=== PATIENT | female | born 1975 | race Two or more races ===

== ENCOUNTER → 2019-09-28 | Emergency (ER) | payer MEDICAID ==
[2019-09-28 23:28] VITALS: BP 134/89
--- NOTE | 2019-09-29 00:51 | ER Document Report ---
ED General - General Chief Complaint: Edema, decreased mo Stated Complaint: LEG SWELLING Time Seen by Provider: 09/29/19 00:16 Notes: 43-year-old female history 1 P0 32 weeks gestation presents emergency department complaining of markedly increased swelling in her feet and legs to the level of her knees starting yesterday associated with foot pain. She states she tried taking a cold bath and got so cold that she then had to take a warm bath but did not relieve any of her pain or swelling. Patient also states that since 3:00 this afternoon she has not felt any movement which is quite concerning to her. She is tried eating and drinking something but it has not caused any movement. Denies any abdominal pain or cramping, denies any vaginal discharge or dysuria. Previously she is only had some mild swelling in her feet that always resolved by morning. - Related Data Allergies/Adverse Reactions: No Known Allergies Allergy (Unverified 09/28/19 23:28) Home Medications: vitamin Past Medical History - General Information source: Patient - Social History Smoking Status: Never Smoker Frequency of alcohol use: None Drug Abuse: None Family History: Reviewed & Not Pertinent Patient has suicidal ideation: No Patient has homicidal ideation: No Review of Systems - Review of Systems Constitutional: No symptoms reported EENT: No symptoms reported Cardiovascular: See HPI, Edema Gastrointestinal: No symptoms reported Female Genitourinary: See HPI, Musculoskeletal: See HPI, Leg swelling, Ankle swelling -: Yes All other systems reviewed and negative Physical Exam - Vital signs Vitals: Temp Pulse Resp BP Pulse Ox 98.5 F 109 H 16 134/89 H 99 09/28/19 23:24 09/28/19 23:24 09/28/19 23:24 09/28/19 23:24 09/28/19 23:24 Interpretation: Hypertensive - Mildly hypertensive, Tachycardic - Notes Notes: GENERAL: Alert, interacts well. No acute distress. HEAD: Normocephalic, atraumatic EYES: Pupils equal, round and reactive to light, extraocular movements intact. ENT: Oral mucosa moist, tongue midline. NECK: Full range of motion, supple, trachea midline. LUNGS: Clear to auscultation bilaterally, no wheezes, rales or rhonchi, no res piratory distress. HEART: Regular rate and rhythm, no murmurs, gallops, rubs. ABDOMEN: gravid, mild RLQ TTP, bowel sounds present in all 4 quadrants. Unable to palpate movement. Bedside US does show heartbeat and spontaneous movement. EXTREMITIES: Moves all 4 extremities spontaneously, 2+ edeman, radial and dorsalis pedis pulses 2/4 bilaterally. No cyanosis. NEUROLOGICAL: Alert and oriented x3, normal speech, biceps and patellar DTRs 2+ bilaterally, no hyperactivity. PSYCH: Normal mood, normal affect. SKIN: Warm, Dry, normal turgor, no rashes or lesions noted. Course - Re-evaluation Re-evalutation: 09/29/19 00:56 Bedside ultrasound does show heartbeat and movement, I had difficulty measuring heartbeat with the ultrasound, we will attempt to get heart tones. Discussed patient with labor and delivery staff, they agree that a patient who is 32 weeks gestation and complaining of decreased movement and increased leg swelling without any respiratory symptoms should be seen on labor and delivery. They agree to accept the patient to labor and delivery triage as a labor check. Patient does not have any severe features of preeclampsia at this time. - Vital Signs Vital signs: Temp Pulse Resp BP Pulse Ox 98.5 F 109 H 16 134/89 H 99 09/28/19 23:24 09/28/19 23:24 09/28/19 23:24 09/28/19 23:24 09/28/19 23:24 Discharge - Discharge Clinical Impression: Third trimester at less than 36 weeks, Lower extremity edema Decreased movement Qualifiers: Fetus number: single or unspecified fetus Trimester: third trimester Qualified Code(s): O36.8130 - Decreased movements, third trimester, not applicable or unspecified Condition: Stable Disposition: LABOR CHECK Unit Admitted: Labor Check
== END | disposition admitted as inpatient to this hospital (09) ==
LOC: ER 23:16
DX: O12.03 Gestational edema, third trimester (principal); O36.8130 Decreased fetal movements, third trimester, not applicable or unspecified; Z3A.36 36 weeks gestation of pregnancy

== ENCOUNTER 2019-09-29 00:58 | Outpatient (CLI) | payer MEDICAID ==
[2019-09-29 01:42] LABS: APPEARANCE,URINE CLEAR; BILIRUBIN,URINE NEGATIVE (NEGATIVE); COLOR,URINE YELLOW; GLUCOSE, URINE NEGATIVE (NEGATIVE); KETONES,URINE NEGATIVE (NEGATIVE); LEUKOCYTE ESTERASE,URINE NEGATIVE (NEGATIVE); NITRITE,URINE NEGATIVE (NEGATIVE); PROTEIN,URINE NEGATIVE (NEGATIVE); UROBILINOGEN,URINE NEGATIVE mg/dL (<2.0)
[2019-09-29 01:49] LABS: URINE AMPHETAMINES SCREEN NEGATIVE; URINE BARBITURATES SCREEN NEGATIVE; URINE BENZODIAZEPINES SCREEN NEGATIVE; URINE COCAINE SCREEN NEGATIVE; URINE MARIJUANA (THC) SCREEN NEGATIVE; URINE METHADONE SCREEN NEGATIVE; URINE PHENCYCLIDINE SCREEN NEGATIVE
--- NOTE | 2019-09-29 02:23 | Non Stress Test Report ---
Non Stress Test Datetime Report Generated by CPN: 09/29/2019 02:23 DEMOGRAPHIC EGA NST: 32.5 INDICATION Indication for Study (NST) Other: LC, gestational age of 32 weeks or greater VITAL SIGNS Temperature - NST: 98.6 Pulse - NST: 80 RESP - NST: 16 NBPSYS NST: 110 NBPDIA NST: 68 MONITORING Monitor Explained: Monitor Explained; Test Explained; Patient Verbalized Understanding Time on Monitor: 09/29/2019 01:22 Time off Monitor: 09/29/2019 02:04 NST Duration: 42 NST INTERVENTIONS NST Interventions: PO Hydration Physician Notified NST: Dr. Powers BABY A: [id number] BABY A Movement : Present Contraction Frequency : none FHR Baseline : 140 Accelerations : 15X15 Decelerations : None Variability : Moderate 6-25bpm NST Review: Meets Criteria for Reactive NST NST Review and Verified By : Rufus Slater RN NST Results: Reactive NST REPORT Report Trigger: Send Report
== END 2019-09-29 02:16 | disposition home or self-care (01) ==
LOC: LC 00:58
PROVIDERS: ATTEND Obstetrics & Gynecology
PROC: 4A1HXCZ Monitoring of Products of Conception, Cardiac Rate, External Approach (ICD-10-PCS; principal; 2019-09-29)
DX: O36.8130 Decreased fetal movements, third trimester, not applicable or unspecified (principal); Z3A.32 32 weeks gestation of pregnancy
CPT/HCPCS: 59025; 80307; 81001

== ENCOUNTER 2019-11-01 04:53 | Inpatient (IN) | payer MEDICAID ==
[2019-10-31 11:56] LABS: ABSOLUTE EOSINOPHILS # (AUTO) 0.1 10^3/uL (0.0-0.6); ABSOLUTE LYMPHOCYTES (AUTO) 1.2 10^3/uL (0.5-4.7); ABSOLUTE MONOCYTES (AUTO) 0.5 10^3/uL (0.1-1.4); ABSOLUTE NEUT (AUTO) 7.4 10^3/uL (1.7-8.2); BASOPHILS % (AUTO) 0.3 % (0-2); EOSINOPHILS % (AUTO) 1.3 % (0-6); HEMATOCRIT 40.8 % (36.0-47.0); HEMOGLOBIN 14.3 g/dL (12.0-15.5); LYMPHOCYTES % (AUTO) 13.2 % (13-45); MEAN CORPUSCULAR HEMOGLOBIN 32.1 pg (27.0-33.4); MEAN CORPUSCULAR HGB CONC 35.2 g/dL (32.0-36.0); MEAN CORPUSCULAR VOLUME 91 fl (80-97); MONOCYTES % (AUTO) 5.8 % (3-13); PLATELET COUNT 171 10^3/uL (150-450); RED BLOOD COUNT 4.47 10^6/uL (3.72-5.28); RED CELL DISTRIBUTION WIDTH 13.9 % (11.5-14.0); SEGMENTED NEUTROPHILS % (AUTO) 79.4 % (42-78); TOTAL CELLS COUNTED % (AUTO) 100 %; WHITE BLOOD COUNT 9.4 10^3/uL (4.0-10.5)
[2019-10-31 12:04] LABS: APPEARANCE,URINE CLEAR; BILIRUBIN,URINE NEGATIVE (NEGATIVE); COLOR,URINE STRAW; GLUCOSE, URINE NEGATIVE (NEGATIVE); KETONES,URINE NEGATIVE (NEGATIVE); LEUKOCYTE ESTERASE,URINE NEGATIVE (NEGATIVE); NITRITE,URINE NEGATIVE (NEGATIVE); PROTEIN,URINE NEGATIVE (NEGATIVE); URINE SPECIFIC GRAVITY 1.003; UROBILINOGEN,URINE NEGATIVE mg/dL (<2.0)
[2019-10-31 12:22] LABS: URINE AMPHETAMINES SCREEN NEGATIVE; URINE BARBITURATES SCREEN NEGATIVE; URINE BENZODIAZEPINES SCREEN NEGATIVE; URINE COCAINE SCREEN NEGATIVE; URINE MARIJUANA (THC) SCREEN NEGATIVE; URINE METHADONE SCREEN NEGATIVE; URINE PHENCYCLIDINE SCREEN NEGATIVE
[2019-11-01] MEDS ORDERED: CEFAZOLIN SODIUM 2 GM in DEXTROSE 5%-WATER 100 ML IV PRN (05:00)
[2019-11-01] MEDS ORDERED: LIDOCAINE 0.5% INJ-PF (5 MG/ML) 50 ML SDV SUBCUT PRN (05:00)
[2019-11-01] MEDS ORDERED: LACTATED RINGERS 1000 ML IV PRN (05:00)
[2019-11-01] MEDS ORDERED: RINGERS SOLUTION,LACTATED 1,000 ML IV PRN ×2 (05:00→09:09)
[2019-11-01] MEDS ORDERED: ONDANSETRON HCL INJ/PF 4 MG/2 ML SDV ONE (07:22)
[2019-11-01] MEDS ORDERED: OXYTOCIN 10 UNIT/ML VIAL ONE (07:22)
[2019-11-01] MEDS ORDERED: OXYTOCIN/NORMAL SALINE 20 UNIT/1,000 ML RTUINJ ONE (07:22)
[2019-11-01] MEDS ORDERED: PHENYLEPHRINE HCL INJ/PF 10 MG/1 ML SDV ONE (07:22)
[2019-11-01] MEDS ORDERED: FENTANYL CITRATE INJ/PF 100 MCG/2 ML AMPUL ONE (07:22)
[2019-11-01] MEDS ORDERED: KETOROLAC TROMETHAMINE INJ/PF 30 MG/1 ML SDV ONE ×2 (07:22→08:41)
[2019-11-01] MEDS ORDERED: ACETAMINOPHEN 1,000 MG/100 ML RTUPB IV ONE (07:22)
[2019-11-01] MEDS ORDERED: CITRIC ACID/SODIUM CITRATE ORAL SOLN 15 ML UDCUP ONE (07:40)
[2019-11-01] MEDS ORDERED: TRIAMCINOLONE ACETONIDE INJ 40 MG/1 ML VIAL INJ PRN (08:13)
[2019-11-01] MEDS ORDERED: PROMETHAZINE HCL INJ 25 MG/1 ML VIAL IV PRN ×2 (08:21→09:09)
[2019-11-01] MEDS ORDERED: MEPERIDINE HCL/PF INJ 25 MG/1 ML DISP.SYRIN IV PRN (08:21)
[2019-11-01] MEDS ORDERED: MORPHINE SULFATE 10 MG/ML INJ IV PRN ×2 (08:21→09:09)
[2019-11-01] MEDS ORDERED: DIPHENHYDRAMINE HCL 50 MG/ML VIAL IV PRN (08:21)
[2019-11-01] MEDS ORDERED: FENTANYL CITRATE INJ/PF 100 MCG/2 ML AMPUL IV PRN ×3 (08:21)
[2019-11-01] MEDS ORDERED: OXYTOCIN/NORMAL SALINE 20 UNIT/1,000 ML RTUINJ IV PRN (09:09)
[2019-11-01] MEDS ORDERED: ACETAMINOPHEN 1,000 MG/100 ML RTUPB IV PRN (09:09)
[2019-11-01] MEDS ORDERED: DIPH/PERTUSS(ACELL)/TETANUS VAC/PF 0.5 ML SYR (>=10YO) IM PRN (09:09)
[2019-11-01] MEDS ORDERED: OXYCODONE-ACETAMINOPHEN 5-325 MG TABLET PO PRN ×2 (09:09)
[2019-11-01] MEDS ORDERED: MEASLES,MUMPS&RUBELLA VACC/PF 0.5 ML VIAL SUBCUT PRN (09:09)
[2019-11-01] MEDS ORDERED: ACETAMINOPHEN 325 MG TABLET PO PRN (09:09)
[2019-11-01] MEDS ORDERED: SIMETHICONE 80 MG TAB.CHEW PO PRN (09:09)
--- NOTE | 2019-11-01 10:22 | Operative Report ---
Operative Report DATE OF SURGERY: 11/01/19 Operative Report: Primary low transverse hysterotomy section with keloid scar revision PREOPERATIVE DIAGNOSIS: IUP at 37 weeks and 3 days, previous full-thickness myomectomy, keloid scar POSTOPERATIVE DIAGNOSIS: Same OPERATION: Primary low transverse hysterotomy section with keloid scar revision SURGEON: SALLY LAWS 1ST INDUSTRIAL SPRAYPAINTER: ROSELYN CHU 2ND Model Builder: MICHAEL LYONS ANESTHESIA: Spinal COMPLICATIONS: None ESTIMATED BLOOD LOSS: 700 INTRAOPERATIVE FINDINGS: Large keloid scar from patient's previous laparotomy, male infant cephalic presentation with Apgars of 8 and 9 PROCEDURE: PROCEDURE IN DETAIL: The patient was taken to the operating room, prepared and draped in a normal sterile fashion in a supine position with a leftward tilt. A transverse skin incision was made with a scalpel outlining the keloid scar. Once the scoring was completed car was undermined using the same scalpel till it was able able to be removed freely from the patient's abdomen. The incision was then carried through to the underlying layer of fascia with the same scalpel. The fascia was excised in the midline and extended laterally with Beverly. The fascia was then dissected from the rectus muscle sharply with Beverly and the rectus muscle was divided and the peritoneal cavity was entered sharply with the Metzenbaum. With good visualization of the bladder and the uterus the bladder blade was inserted. The hysterotomy was nicked with a scalpel and extended laterally with surgeon finger fraction. The was then delivered atraumatically. The nose and mouth were suctioned with a suction bulb, the cord was clamped and cut and handed off to awaiting pediatricians. Cord blood was collected. The placenta was removed manually. The uterus was exteriorized and cleared of clots and debris. The hysterotomy was closed with 0 Monocryl in a running, locked fashion. A second layer of the same suture was used to imbricate to ensure hemostasis. The uterus was returned to the abdomen and peritoneal cavity was cleared of clots and debris. The rectus muscle and peritoneum were repaired with mattress stitch of 2-0 Chromic. The fascia was closed with 0-Vicryl. The subcutaneous layer was closed with plain catgut and the skin was closed with 4-0 Vicryl. The incision was then injected with 40 mg of Kenalog diluted in 20 cc of sterile saline to prevent formation of keloid. the patient tolerated the procedure well. Sponge, lap, and needle counts correct x2 and the patient was taken to recovery in stable condition.
[2019-11-01] MEDS: DOCUSATE SODIUM 100 MG CAPSULE PO SCH ×2 (10:40→17:18)
[2019-11-01] MEDS: PRENATAL VITAMIN W DHA CAPSULE PO SCH (10:40)
[2019-11-01] MEDS ORDERED: MORPHINE SULFATE 10 MG/ML INJ ONE (10:46)
[2019-11-01] MEDS ORDERED: KETOROLAC TROMETHAMINE INJ/PF 30 MG/1 ML SDV IV SCH (14:00)
[2019-11-01] MEDS: KETOROLAC TROMETHAMINE INJ/PF 30 MG/1 ML SDV IV SCH (17:17)
[2019-11-02] MEDS: KETOROLAC TROMETHAMINE INJ/PF 30 MG/1 ML SDV IV SCH (01:46)
[2019-11-02 07:05] LABS: HEMATOCRIT 30.5 % (36.0-47.0); MEAN CORPUSCULAR HEMOGLOBIN 32.4 pg (27.0-33.4); MEAN CORPUSCULAR HGB CONC 35.4 g/dL (32.0-36.0); MEAN CORPUSCULAR VOLUME 92 fl (80-97); PLATELET COUNT 140 10^3/uL (150-450); RED BLOOD COUNT 3.34 10^6/uL (3.72-5.28); RED CELL DISTRIBUTION WIDTH 13.8 % (11.5-14.0); WHITE BLOOD COUNT 10.6 10^3/uL (4.0-10.5)
[2019-11-02 07:10] LABS: HEMOGLOBIN 10.8 g/dL (12.0-15.5)
[2019-11-02] MEDS: PRENATAL VITAMIN W DHA CAPSULE PO SCH (10:20)
[2019-11-02] MEDS: DOCUSATE SODIUM 100 MG CAPSULE PO SCH ×2 (10:20→17:25)
[2019-11-02] MEDS: IBUPROFEN 800 MG TABLET PO SCH ×3 (11:51→23:06)
--- NOTE | 2019-11-02 12:59 | PDOC PROGRESS REPORT ---
Subjective-OB Progress Note for:: 11/02/19 Subjective: 43yo G1 now P1 s/p primary ppd1. Pt reports pain well controlled with medication no concerns today, voiding without difficulty and passing gas. Physical Exam (OB) Vital Signs: Temp Pulse Resp BP Pulse Ox 97.5 F 91 18 110/66 100 11/02/19 11:04 11/02/19 11:04 11/02/19 11:04 11/02/19 11:04 11/02/19 11:04 Intake & Output 11/01/19 11/02/19 11/03/19 06:59 06:59 06:59 Intake Total 2800 Output Total 2995 Balance -195 Weight 73.482 kg - General General Appearance: Appears well In distress: None - PIH/Pre-Eclampsia DTR's: 1 + Clonus: Negative Headache: Absent Epigastric Pain: No Visual Changes: No - Dressing Removed: No Incision: Dressing Closure Type: op site - Lochia Lochia Amount: Scant < 10 ml Lochia Color: Rubra/Red - Abdomen Description: Soft, Round Hernia Present: No Fundal Description: Firm, Midline Fundal Height: u/u - u/2 - Respiratory Respiratory Status: No respiratory distress - Extremities Upper extremity: Edema Lower extremities: Edema - Neurological Cognition: Normal Orientation: AAOx4 - Psychological Associated symptoms: Normal affect, Normal mood Objective-Diagnostic Laboratory: 11/02/19 06:31 11/02/19 06:31 WBC 10.6 H RBC 3.34 L Hgb 10.8 L D Hct 30.5 L MCV 92 MCH 32.4 MCHC 35.4 RDW 13.8 Plt Count 140 L Assessment and Plan(PN) - Assessment and Plan (1) Acute blood loss anemia Is this a current diagnosis for this admission?: Yes Plan: increase dietary iron and FeSO4 BID (2) Status post scar revision Is this a current diagnosis for this admission?: Yes Plan: routine pp care (3) Status post primary low transverse section Is this a current diagnosis for this admission?: Yes Plan: routine pp care - Time Spent with Patient Time with patient: Less than 15 minutes Medications reviewed and adjusted accordingly: Yes - Disposition Anticipated Discharge: Home Within: within 24 hours
[2019-11-03] MEDS: IBUPROFEN 800 MG TABLET PO SCH ×4 (09:13→23:04)
[2019-11-03] MEDS: DOCUSATE SODIUM 100 MG CAPSULE PO SCH ×2 (09:14→18:13)
[2019-11-03] MEDS: PRENATAL VITAMIN W DHA CAPSULE PO SCH (09:14)
[2019-11-03] MEDS ORDERED: PROMETHAZINE HCL INJ 25 MG/1 ML VIAL IV PRN (11:30)
[2019-11-03] MEDS ORDERED: DIPH/PERTUSS(ACELL)/TETANUS VAC/PF 0.5 ML SYR (>=10YO) IM PRN (11:30)
[2019-11-03] MEDS ORDERED: MEASLES,MUMPS&RUBELLA VACC/PF 0.5 ML VIAL SUBCUT PRN (11:30)
--- NOTE | 2019-11-03 15:07 | PDOC PROGRESS REPORT ---
Subjective-OB Progress Note for:: 11/03/19 Subjective: 43 yo G1 now P1 s/p primary ppd 2. Ambulating and voiding without difficulty. Reports pain well controlled with medication, only concern is swelling of extremities and baby might not be discharged today, needs additional help eating. No other concerns today Physical Exam (OB) Vital Signs: Temp Pulse Resp BP Pulse Ox 98.2 F 78 16 110/68 99 11/03/19 08:00 11/03/19 08:00 11/03/19 08:00 11/03/19 08:00 11/03/19 08:00 Intake & Output 11/02/19 11/03/19 11/04/19 06:59 06:59 06:59 Intake Total 2800 900 600 Output Total 2995 Balance -195 900 600 - General General Appearance: Appears well In distress: None - PIH/Pre-Eclampsia DTR's: 1 + Clonus: Negative Headache: Absent Epigastric Pain: No Visual Changes: No - Dressing Removed: No Incision: Dressing Closure Type: opsite - Lochia Lochia Amount: Scant < 10 ml Lochia Color: Rubra/Red - Abdomen Description: Soft Hernia Present: No Fundal Description: Firm, Midline Fundal Height: u/u - u/2 - Respiratory Respiratory Status: No respiratory distress - Extremities Upper extremity: Normal inspection Lower extremities: Normal inspection - Neurological Cognition: Normal Orientation: AAOx4 - Psychological Associated symptoms: Normal affect, Normal mood Objective-Diagnostic Laboratory: 11/02/19 06:31 Assessment and Plan(PN) - Assessment and Plan (1) Acute blood loss anemia Is this a current diagnosis for this admission?: Yes Plan: increase dietary iron and FeSO4 BID (2) Status post scar revision Is this a current diagnosis for this admission?: Yes Plan: delivered (3) Status post primary low transverse section Is this a current diagnosis for this admission?: Yes Plan: routine pp care - Time Spent with Patient Time with patient: Less than 15 minutes Medications reviewed and adjusted accordingly: Yes - Disposition Anticipated Discharge: Home Within: within 24 hours
[2019-11-03 15:34] LABS: HEMATOCRIT 33.1 % (36.0-47.0); HEMOGLOBIN 11.7 g/dL (12.0-15.5); MEAN CORPUSCULAR HEMOGLOBIN 31.8 pg (27.0-33.4); MEAN CORPUSCULAR HGB CONC 35.3 g/dL (32.0-36.0); MEAN CORPUSCULAR VOLUME 90 fl (80-97); PLATELET COUNT 177 10^3/uL (150-450); RED BLOOD COUNT 3.67 10^6/uL (3.72-5.28); RED CELL DISTRIBUTION WIDTH 13.7 % (11.5-14.0); WHITE BLOOD COUNT 10.9 10^3/uL (4.0-10.5)
[2019-11-04] MEDS ORDERED: BISACODYL 10 MG SUPP.RECT PR PRN (00:21)
[2019-11-04] MEDS: IBUPROFEN 800 MG TABLET PO SCH ×2 (05:56→11:26)
[2019-11-04] MEDS: DOCUSATE SODIUM 100 MG CAPSULE PO SCH (10:27)
[2019-11-04] MEDS: PRENATAL VITAMIN W DHA CAPSULE PO SCH (10:27)
[2019-11-04 11:36] VITALS: BP 137/80
--- NOTE | 2019-11-04 13:07 | PDOC DISCHARGE SUMMARY ---
Impression - Admit/DC Date/PCP Admission Date/Primary Care Provider: 11/01/19 04:53 Discharge Date: 11/04/19 - Discharge Diagnosis (1) Status post primary low transverse section Is this a current diagnosis for this admission?: Yes (2) Status post scar revision Is this a current diagnosis for this admission?: Yes - Additional Information Resuscitation Status: Full Code Discharge Diet: As Tolerated, Regular Discharge Activity: Activity As Tolerated, Balance Activity w/Rest, No Driving, No Lifting Over 10 Pounds, Pelvic Rest, No tub bath, Walk Frequently Referrals: [facility] [Provider Group] (Please call and confirm 1 week follow up for incision check at [facility].) Prescriptions: Oxycodone HCl/Acetaminophen [Percocet 5-325 mg Tablet] 1 tab PO Q4HP PRN #20 tablet PRN Reason: For Pain Scale 3-5 Ibuprofen [Motrin 800 mg Tablet] 800 mg PO Q8HP PRN #20 tablet PRN Reason: For Pain Scale 1-3 Docusate Sodium [Colace 100 mg Capsule] 100 mg PO BID #60 capsule Ferrous Sulfate [Feosol 325 mg Tablet] 325 mg PO BID 30 Days #60 tablet Home Medications: Pnv,Calcium 72/Iron/Folic Acid [ Vitamin Plus Low Iron] 09/29/19 Vitamin B Complex 1 each PO 09/29/19 Docusate Sodium [Colace 100 mg Capsule] 100 mg PO BID #60 capsule 11/02/19 Ferrous Sulfate [Feosol 325 mg Tablet] 325 mg PO BID 30 Days #60 tablet 11/02/19 Ibuprofen [Motrin 800 mg Tablet] 800 mg PO Q8HP PRN #20 tablet 11/02/19 Oxycodone HCl/Acetaminophen [Percocet 5-325 mg Tablet] 1 tab PO Q4HP PRN #20 tablet 11/02/19 HPI Reason(s) for Admission: Ceasarean Section-Primary Admission Note: hx myomectomy 37 wk CS Intrapartum Procedure(s): : Low Cervical, Transverse Results Laboratory Results: WBC 10.9 10^3/uL (4.0-10.5) H 11/03/19 15:26 RBC 3.67 10^6/uL (3.72-5.28) L 11/03/19 15:26 Hgb 11.7 g/dL (12.0-15.5) L 11/03/19 15: Hct 33.1 % (36.0-47.0) L 11/03/19 15: MCV 90 fl (80-97) 11/03/19 15: MCH 31.8 pg (27.0-33.4) 11/03/19 15: MCHC 35.3 g/dL (32.0-36.0) 11/03/19 15: RDW 13.7 % (11.5-14.0) 11/03/19 15: Plt Count 177 10^3/uL (150-450) 11/03/19 15: Lymph % (Auto) 13.2 % (13-45) 10/31/19 11:21 Tripp % (Auto) 5.8 % (3-13) 10/31/19 11: Eos % (Auto) 1.3 % (0-6) 10/31/19 11: Baso % (Auto) 0.3 % (0-2) 10/31/19 11:21 Absolute Neuts (auto) 7.4 10^3/uL (1.7-8.2) 10/31/19 11: Absolute Lymphs (auto) 1.2 10^3/uL (0.5-4.7) 10/31/19 11: Absolute Monos (auto) 0.5 10^3/uL (0.1-1.4) 10/31/19 11:21 Absolute Eos (auto) 0.1 10^3/uL (0.0-0.6) 10/31/19 11:21 Absolute Basos (auto) 0.0 10^3/uL (0.0-0.2) 10/31/19 11:21 Seg Neutrophils % 79.4 % (42-78) H 10/31/19 11:21 Urine Color STRAW 10/31/19 11:15 Urine Appearance CLEAR 10/31/19 11:15 Urine pH 7.0 (5.0-9.0) 10/31/19 11:15 Ur Specific [place] 1.003 10/31/19 11:15 Urine Protein NEGATIVE mg/dL (NEGATIVE) 10/31/19 11:15 Urine Glucose (UA) NEGATIVE mg/dL (NEGATIVE) 10/31/19 11:15 Urine Ketones NEGATIVE mg/dL (NEGATIVE) 10/31/19 11:15 Urine Blood NEGATIVE (NEGATIVE) 10/31/19 11:15 Urine Nitrite NEGATIVE (NEGATIVE) 10/31/19 11:15 Urine Bilirubin NEGATIVE (NEGATIVE) 10/31/19 11:15 Urine Urobilinogen NEGATIVE mg/dL (<2.0) 10/31/19 11:15 Ur Leukocyte Esterase NEGATIVE (NEGATIVE) 10/31/19 11:15 Urine WBC (Auto) 1 /HPF 10/31/19 11:15 Urine RBC (Auto) 1 /HPF 10/31/19 11:15 Urine Bacteria (Auto) 3+ /HPF 10/31/19 11:15 Squamous Epi Cells Auto <1 /HPF 10/31/19 11:15 Urine Mucus (Auto) RARE /LPF 10/31/19 11:15 Urine Ascorbic Acid NEGATIVE (NEGATIVE) 10/31/19 11:15 Urine Opiates Screen NEGATIVE 10/31/19 11:15 Urine Methadone Screen NEGATIVE 10/31/19 11:15 Ur Barbiturates Screen NEGATIVE 10/31/19 11:15 Ur Phencyclidine Scrn NEGATIVE 10/31/19 11:15 Ur Amphetamines Screen NEGATIVE 10/31/19 11:15 U Benzodiazepines Scrn NEGATIVE 10/31/19 11:15 Urine Cocaine Screen NEGATIVE 10/31/19 11:15 U Marijuana (THC) Screen NEGATIVE 10/31/19 11:15 SARS-CoV-2 (PCR) NEGATIVE (NEGATIVE) 10/31/19 11:40 Blood Type O POSITIVE 10/31/19 11:21 Antibody Screen NEGATIVE 10/31/19 11:21 Plan Plan of Treatment: f/u at [facility] as scheduled
== END 2019-11-04 15:11 | disposition home or self-care (01) | DRG 787 ==
LOC: 2S 04:53
PROVIDERS: ADMIT Obstetrics & Gynecology; ATTEND Obstetrics & Gynecology
PROC: 10D00Z1 Extraction of Products of Conception, Low, Open Approach (ICD-10-PCS; principal; 2019-11-01)
PROC: 0HN7XZZ Release Abdomen Skin, External Approach (ICD-10-PCS; 2019-11-01)
DX: O34.29 Maternal care due to uterine scar from other previous surgery (principal); D62 Acute posthemorrhagic anemia; N85.8 Other specified noninflammatory disorders of uterus; Z3A.37 37 weeks gestation of pregnancy; O90.81 Anemia of the puerperium; Z37.0 Single live birth
CPT/HCPCS: 1961; 36415; 59025; 80307; 81001; 85025; 85027; 86850; 86900; 86901; 87635; 94760; 94799; J0131; J0690; J1885; J2270; J2370; J2405; J2590; J3010; J3490; J7060; J7120